=== PATIENT | male | born 1965 | race Caucasian/White ===

== ENCOUNTER → 2016-12-14 | Outpatient (CLI) | payer BC ==
--- NOTE | 2016-12-14 14:38 | DIAGNOSTIC IMAGING REPORT ---
LEFT SHOULDER MIN 2 VIEWS HISTORY: 51 years-old Male acute left shoulder pain status post fall COMPARISON: None available TECHNIQUE: 3 views of the left shoulder FINDINGS: Minimal degenerative changes about the left glenohumeral joint are present. No significant AC joint degenerative changes. There is no acute fracture or dislocation. The imaged left lung appears clear. Negative for radiopaque foreign body. IMPRESSION: No acute fracture or dislocation of the left shoulder. The above report was generated using voice recognition software. It may contain grammatical, syntax or spelling errors. Electronically signed by: Franko Thrasher M.D. 12/14/2016 2:37 PM Dictated Date/Time: 12/14/2016 2:36 PM
== END | disposition home or self-care (01) ==
LOC: C.RDSM 13:29
PROVIDERS: ATTEND Family Medicine
DX: M25.512 Pain in left shoulder (principal)

== ENCOUNTER 2017-09-11 07:02 | Day surgery (SDC) | payer BC ==
--- NOTE | 2017-08-28 14:35 | PAT Medication Instructions ---
Service Date Aug 28, 2017. Current Home Medication List Fish Oil ([place]-3), 1 CAP PO Q2D Multivitamin (Multivitamin), 1 TAB PO QAM [Myrbetriq], 1 TAB PO QAM [Singulair], 1 TAB PO PRN Medication Instructions For Your Scheduled Surgery - Hold the following medications 2 weeks prior to surgery: Fish Oil ([place]-3), 1 CAP PO Q2D - Hold the following medications the morning of surgery: Multivitamin (Multivitamin), 1 TAB PO QAM [Myrbetriq], 1 TAB PO QAM - Take the following medications the morning of surgery with a sip of water: [Singulair], 1 TAB PO PRN (if needed) - Take the following medications as scheduled the night before surgery: [Singulair], 1 TAB PO PRN (if needed) If you have any questions please call us at [phone] or [phone] or [phone]
[2017-08-28 14:56] LABS: BASO % 0.5 %; BASO ABS # 0.03 K/uL (0-0.2); EOS % 2.1 %; EOS ABS # 0.12 K/uL (0-0.5); HEMATOCRIT 45.1 % (42-52); HEMOGLOBIN 15.2 g/dL (14.0-18.0); IG# 0.01 K/uL (0.00-0.02); LYMPH % 35.8 %; LYMPH ABS # 2.09 K/uL (1.2-3.4); MEAN CELL VOLUME 89.8 fL (80-100); MEAN CORPUSCULAR HEMOGLOBIN 30.3 pg (25-34); MEAN CORPUSCULAR HGB CONC 33.7 g/dl (32-36); MEAN PLATELET VOLUME 10.6 fL (7.4-10.4); MONO % 9.4 %; MONO ABS # 0.55 K/uL (0.11-0.59); NEUT ABS # 3.04 K/uL (1.4-6.5); PLATELET COUNT 224 K/uL (130-400); RED CELL DISTRIBUTION WIDTH CV 12.9 % (11.5-14.5); RED CELL DISTRIBUTION WIDTH SD 42.4 fL (36.4-46.3); WHITE BLOOD COUNT 5.84 K/uL (4.8-10.8)
[2017-08-28 15:04] LABS: CALCIUM 9.1 mg/dl (8.5-10.1); CREATININE 1.13 mg/dl (0.60-1.40); POTASSIUM 4.3 mmol/L (3.5-5.1)
--- NOTE | 2017-08-28 15:23 | DIAGNOSTIC IMAGING REPORT ---
CHEST 2 VIEWS ROUTINE HISTORY: Preop. COMPARISON: None. FINDINGS: The lungs are clear. Cardiac silhouette is normal in size. No pleural effusions. No pneumothorax. IMPRESSION: No acute process. Electronically signed by: Low Wood M.D. 08/28/2017 3:22 PM Dictated Date/Time: 08/28/2017 3:19 PM
[~2017-09-11] VITALS: Ht 165.1 cm; Wt 82.5 kg
[~2017-09-11 07:02] MED LIST: CIPROFLOXACIN / D5W 400 MG IV SCH; CIPROFLOXACIN 400MG / D5W IV SCH; LACTATED RINGER'S 1000ML 1,000 ML IV SCH; MULT-506 PO; MYRBETRIQ PO; OMEG10007 PO; SINGULAIR PO
[2017-09-11 07:21] VITALS: BP 119/71; PULSE 59; TEMP 36.8; O2SAT 97; Ht 165.1 cm; Wt 82.5 kg
[2017-09-11] MEDS ORDERED: MIDAZOLAM HCL 1 MG/ML 2ML VIAL ONE (07:21)
[2017-09-11] MEDS ORDERED: PROPOFOL IV EMULSION 10 MG/ML 20 ML VIAL ONE (07:22)
[2017-09-11] MEDS ORDERED: FENTANYL CITRATE INJ 50 MCG/1 ML 2 ML VIAL ONE (07:22)
--- NOTE | 2017-09-11 08:52 | History & Physical Bridge Note ---
H&P Re-Evaluation Bridge Note: I have examined the patient, reviewed the History & Physical and in the interval since the performance of the History & Physical I have noted the following changes of clinical significance: No changes noted
[2017-09-11] MEDS ORDERED: LIDOCAINE HCL 2% 2 ML VIAL (20MG/ML) ONE (09:21)
[2017-09-11] MEDS ORDERED: ONDANSETRON INJ 2 MG/ML 2 ML VIAL ONE (09:21)
[2017-09-11] MEDS ORDERED: DEXAMETHASONE SOD INJ 4 MG/ML VIAL ONE (09:22)
[2017-09-11] MEDS ORDERED: PROMETHAZINE HCL INJ 6.25 MG in SODIUM CHLORIDE 0.9% 50ML 50 ML IV PRN (09:30)
[2017-09-11] MEDS ORDERED: ATROPINE SULFATE 0.1 MG/ML 5ML SYR IV PRN (09:30)
[2017-09-11] MEDS ORDERED: ONDANSETRON INJ 2 MG/ML 2 ML VIAL IV PRN (09:30)
[2017-09-11] MEDS ORDERED: FENTANYL CITRATE INJ 50 MCG/1 ML 2 ML VIAL IV PRN (09:30)
[2017-09-11] MEDS ORDERED: EpHEDrine SULFATE INJ 50 MG/ML AMP IV PRN (09:30)
--- NOTE | 2017-09-11 09:32 | [facility] Operative Report ---
Operative Report Operative Date September 11, 2017. Pre-Operative Diagnosis Benign Prostastic Hyperplasia with urinary obstruction Post-Operative Diagnosis Benign Prostastic Hyperplasia with urinary obstruction Procedure(s) Performed Cystoscopy, Urolift Surgeon Dr. Parker Young Fur Grader Surgeon(s) none Estimated Blood Loss 3mL Findings Lateral lobe hypertrophy with a small median bar Specimens none per surgeon Drains None Anesthesia Type General Disposition yes Recovery Room / PACU Indications Voiding dysfunction Description of Procedure Patient was identified in the preoperative holding area, appropriate informed consents were reviewed and completed and the patient was transported to the operating suite. Upon arrival he received appropriate preoperative antibiotics in the form of ciprofloxacin. Adequate sedation was achieved, and he was placed in dorsal lithotomy position where he was sterilely prepped and draped in standard fashion. I began the case by passing a cystoscope with 0 lens. Inspection of the urethra revealed healthy-appearing mucosa without evidence of strictures. Prostate was inspected, and he was noted to have lateral lobe hypertrophy. Full inspection of the bladder was carried out. There were no tumors, stones, or other abnormalities. I then exchanged visual obturator for the first uro-lift device. The first suture was deployed on the right side of the prostate approximately 1 cm in from the bladder neck. A mirror image suture was then deployed on the left. A third suture was placed adjacent to the verumontanum on the right. A fourth suture was placed in a mirror image of this location on the left. There is an excellent anterior channel. He has a small median bar, but this does not appear to be overly obstructive. There was excellent hemostasis. I reinspected the bladder and prostate and confirmed an excellent anterior channel. I attest to the content of the Intraoperative Record and any orders documented therein. Any exceptions are noted below.
[2017-09-11] MEDS ORDERED: SODIUM CHLORIDE 0.9% 1000ML 1,000 ML IV SCH (09:33)
[2017-09-11] MEDS ORDERED: MIRA1TAB3 PO (09:37)
[2017-09-11] MEDS ORDERED: CIPR-255 PO (09:37)
[2017-09-11] MEDS ORDERED: PHEN95TA14 PO (09:37)
[2017-09-11] MEDS ORDERED: HYDR-5688 PO (09:39)
--- NOTE | 2017-09-11 09:39 | Discharge Instructions ---
Discharge Instructions Date of Service September 11, 2017. Admission Reason for Admission: Benign Prostatic Hyperplasia #841 Discharge Discharge Diagnosis / Problem: BPH Discharge Goals Goal(s): Decrease discomfort, Improve function, Increase independence, Improve disease control Activity Recommendations Activity Limitations: resume your previous activity Lifting Limitations: none Exercise/Sports Limitations: none May Resume Sexual Activity: when tolerated Shower/Bathe: no limitations Driving or Machine Use: resume 1 day after discharge . Instructions / Follow-Up Instructions / Follow-Up Please keep your previously scheduled follow up appointment with Dr. Young Current Hospital Diet Patient's current hospital diet: Discharge Diet Recommended Diet: Regular Diet Procedures Procedures Performed: Cystoscopy, Urolift Pending Studies Studies pending at discharge: no Medical Emergencies . Who to Call and When: Medical Emergencies: If at any time you feel your situation is an emergency, please call 911 immediately. . Non-Emergent Contact Non-Emergency issues call your: Urologist Call Non-Emergent contact if: you have a fever, temperature is above 101.5, your pain is not controlled, your pain is worsening . . "Provider Documentation" section prepared by Severo Rain. . [place] Drug Monitoring Program Search Results: patient reviewed within database, no issues identified
[2017-09-11] MEDS ORDERED: OXYCODONE/ACETAMINOPHEN 5-325 TAB PO PRN ×2 (09:45)
[2017-09-11] MEDS ORDERED: ACETAMINOPHEN 325 MG TAB PO PRN (09:45)
--- NOTE | 2017-09-11 10:19 | Anesthesiology Progress Note ---
Anesthesia Post Op Note Date & Time September 11, 2017 at 10:19 Vital Signs Pain Intensity: 0 Vital Signs Past 12 Hours Date Time Temp Pulse Resp B/P (MAP) Pulse Ox O2 Delivery O2 Flow Rate FiO2 09/11/17 10:10 36.3 59 13 106/70 96 Room Air 09/11/17 10:00 61 14 129/84 96 Room Air 09/11/17 09:50 63 12 119/74 95 Room Air 09/11/17 09:40 36.0 57 12 122/80 96 Room Air 09/11/17 07:21 36.8 59 16 119/71 (87) 97 Room Air Notes Mental Status: alert / awake / arousable, participated in evaluation Pt Amnestic to Procedure: Yes Nausea / Vomiting: adequately controlled Pain: adequately controlled Airway Patency, RR, SpO2: stable & adequate BP & HR: stable & adequate Hydration State: stable & adequate Anesthetic Complications: no major complications apparent
[2017-09-11 10:20] VITALS: BP 111/72; PULSE 57; TEMP 36.6; O2SAT 97
[2017-09-11 10:48] VITALS: BP 114/73; PULSE 58; O2SAT 97
[2017-09-11 11:20] VITALS: BP 119/73; PULSE 56; TEMP 36.5; O2SAT 97
== END 2017-09-11 11:31 | disposition home or self-care (01) ==
LOC: C.ACU 07:02
PROVIDERS: ATTEND Urology
DX: N40.1 Benign prostatic hyperplasia with lower urinary tract symptoms (principal); N13.8 Other obstructive and reflux uropathy; R35.0 Frequency of micturition; R39.15 Urgency of urination; Z88.2 Allergy status to sulfonamides; Z87.442 Personal history of urinary calculi; Z90.49 Acquired absence of other specified parts of digestive tract; Z80.8 Family history of malignant neoplasm of other organs or systems; Z82.49 Family history of ischemic heart disease and other diseases of the circulatory system